=== PATIENT | female | born 1935 | race Caucasian/White ===

== ENCOUNTER 2019-02-09 14:55 | Emergency (ER) | payer MEDICARE, BC ==
[2019-02-09 15:25] LABS: ABSOLUTE EOSINOPHILS # (AUTO) 0.3 10^3/uL (0.0-0.6); ABSOLUTE LYMPHOCYTES (AUTO) 0.7 10^3/uL (0.5-4.7); ABSOLUTE MONOCYTES (AUTO) 0.4 10^3/uL (0.1-1.4); ABSOLUTE NEUT (AUTO) 3.4 10^3/uL (1.7-8.2); EOSINOPHILS % (AUTO) 5.4 % (0-6); HEMATOCRIT 33.5 % (36.0-47.0); HEMOGLOBIN 11.1 g/dL (12.0-15.5); LYMPHOCYTES % (AUTO) 14.8 % (13-45); MEAN CORPUSCULAR HEMOGLOBIN 31.2 pg (27.0-33.4); MEAN CORPUSCULAR HGB CONC 33.2 g/dL (32.0-36.0); MEAN CORPUSCULAR VOLUME 94 fl (80-97); MONOCYTES % (AUTO) 8.2 % (3-13); PLATELET COUNT 181 10^3/uL (150-450); RED BLOOD COUNT 3.56 10^6/uL (3.72-5.28); RED CELL DISTRIBUTION WIDTH 13.4 % (11.5-14.0); SEGMENTED NEUTROPHILS % (AUTO) 70.6 % (42-78); TOTAL CELLS COUNTED % (AUTO) 100 %; WHITE BLOOD COUNT 4.8 10^3/uL (4.0-10.5)
[2019-02-09 15:42] LABS: ALANINE AMINOTRANSFERASE 20 U/L (9-52); ALBUMIN 3.2 g/dL (3.5-5.0); ALKALINE PHOSPHATASE 43 U/L (38-126); ANION GAP 7 (5-19); ASPARTATE AMINO TRANSFERASE 20 U/L (14-36); BILIRUBIN,DIRECT 0.2 mg/dL (0.0-0.4); BILIRUBIN,TOTAL 0.4 mg/dL (0.2-1.3); BLOOD UREA NITROGEN 15 mg/dL (7-20); CALCIUM 8.4 mg/dL (8.4-10.2); CARBON DIOXIDE 24 mmol/L (22-30); CHLORIDE 110 mmol/L (98-107); GLUCOSE 111 mg/dL (75-110); POTASSIUM 3.9 mmol/L (3.6-5.0); SODIUM 141.1 mmol/L (137-145); TOTAL PROTEIN 5.7 g/dL (6.3-8.2)
--- NOTE | 2019-02-09 16:43 | RADIOLOGY REPORT (SQ) ---
EXAM DESCRIPTION: CHEST 2 VIEWS COMPLETED DATE/TIME: 02/09/2019 4:25 pm REASON FOR STUDY: hypoxia, elevated temp COMPARISON: None. EXAM PARAMETERS: NUMBER OF VIEWS: two views TECHNIQUE: Digital Frontal and Lateral radiographic views of the chest acquired. RADIATION DOSE: NA LIMITATIONS: none FINDINGS: LUNGS AND PLEURA: Patchy right lower lobe airspace disease is present, question pneumonia. Left lung grossly clear. No pleural effusion. No pneumothorax. MEDIASTINUM AND HILAR STRUCTURES: Prominent central pulmonary arteries, tortuous uncoiled thoracic ao rta HEART AND VASCULAR STRUCTURES: Marked cardiomegaly BONES: Old sternal and multiple thoracic and lumbar compression deformities. midthoracic compression s are treated with kyphoplasty HARDWARE: None in the chest. OTHER: No other significant finding. IMPRESSION: Patchy right lower lobe pneumonia TECHNICAL DOCUMENTATION: JOB ID: [id number] [employer]- All Rights Reserved Reading location - IP/workstation name: [email or web address]
[2019-02-09] MEDS ORDERED: LEVOFLOXACIN 750 MG/D5W RTU 750 MG/150 ML RTUPB IV ONE (17:16)
--- NOTE | 2019-02-09 18:41 | ER Document Report ---
ED General - General Chief Complaint: Heat Exposure Stated Complaint: VOMITING Time Seen by Provider: 02/09/19 15:27 TRAVEL OUTSIDE OF THE [place] IN LAST 30 DAYS: No - HPI Notes: Patient is an 83-year-old female with a history of atrial fibrillation, traveling here from [place], who presents to the emergency part for evaluation of weakness. [place] about an hour. She was underneath and on [place]. It was time to go inside, and she was too weak to be able to stand up without assistance. She had difficulty ambulating back to the room. She is brought here for further evaluation. The patient states that she felt hot all over and somewhat nauseated. She was given IV fluids as well a Zofran in route via EMS. She states she is feeling somewhat improved. She denies any focal pain. She is had no fevers. Minimal cough, states she is had some nasal drainage otherwise urinating normally, normal bowel movements, no other acute complaints or concerns. She states she been taking her medications as prescribed. - Related Data Allergies/Adverse Reactions: Sulfa (Sulfonamide Antibiotics) Allergy (Verified 02/09/19 15:33) Past Medical History - General Information source: Patient, Relative - Social History Smoking Status: Never Smoker Chew tobacco use (# tins/day): No Frequency of alcohol use: Rare Drug Abuse: None Family History: Reviewed & Not Pertinent Patient has suicidal ideation: No Patient has homicidal ideation: No - Past Medical History Cardiac Medical History: Reports: Hx Atrial Fibrillation, Hx Hypertension Renal/ Medical History: Denies: Hx Peritoneal Dialysis Past Surgical History: Reports: Hx Orthopedic Surgery - BACK Review of Systems - Review of Systems Constitutional: See HPI EENT: No symptoms reported Cardiovascular: No symptoms reported Respiratory: See HPI Gastrointestinal: See HPI Genitourinary: No symptoms reported Musculoskeletal: No symptoms reported Skin: No symptoms reported Neurological/Psychological: No symptoms reported Physical Exam - Vital signs Vitals: Temp 100.2 F 02/09/19 15:01 - Notes Notes: 83-year-old female, appears her stated age in no acute distress. Head is normocephalic and atraumatic. Pupils are equal, round, reactive to light. Oral mucosa is moist. Neck is supple without meningismus. Heart is irregularly irregular with holosystolic murmur. Lungs revealed diminished breath sounds at the right base. Abdomen is soft, nontender, normoactive bowel sounds. Posterior calves are nontender. Extremities without cyanosis or clubbing. Peripheral pulses are equal. Skin is warm and dry. Patient is awake and alert, she is disoriented to time, but patient's daughter states this is her baseline. Course - Re-evaluation Re-evalutation: 02/09/19 18:39 Patient presented to the emergency department for evaluation. She was placed on a night monitor and laboratory investigations were obtained. She was noted to be mildly hypoxic at first, with a SPO2 of 91% on room air. She has no history of COPD or asthma, no history of smoking. Laboratory investigations and chest x-ray were obtained. Chest x-ray did reveal a focal pneumonia in the right lower lobe. At this time patient's heart rate is normal. Her white count is normal. Her blood pressures are normal. At rest her oxygen is 98% on room air. We discussed options extensively here in the emergency department. She would prefer to be discharged, follow-up with her primary care physician back home in [place]. She was given a dose of IV Levaquin here. I explained to the patient that exertion could certainly worsen her mild hypoxia, she needs to rest. She voiced understanding to this. She certainly understand that if any changes in her symptoms or worsening occurs, she needs to return immediately to the emergency department for evaluation. - Vital Signs Vital signs: Temp Pulse Resp BP Pulse Ox 100.2 F 67 21 H 146/80 H 100 02/09/19 15:01 02/09/19 19:38 02/09/19 19:38 02/09/19 19:38 02/09/19 19:38 - Laboratory Result Diagrams: 02/09/19 15:10 02/09/19 15:10 Laboratory results interpreted by me: 02/09/19 02/09/19 15:10 15:10 RBC 3.56 L Hgb 11.1 L Hct 33.5 L Chloride 110 H Glucose 111 H Total Protein 5.7 L Albumin 3.2 L - Diagnostic Test Radiology reviewed: Reports reviewed Radiology results interpreted by me: 02/09/19 18:40 Chest X-Ray 02/09/19 15:49 IMPRESSION: Patchy right lower lobe pneumonia - EKG Interpretation by Me Additional EKG results interpreted by me: 02/09/19 18:40 Sinus mechanism with a rate of 83 bpm. Left bundle branch block. No old studies for comparison. Discharge - Discharge Clinical Impression: Generalized weakness Right lower lobe pneumonia Qualifiers: Aspiration pneumonia type: unspecified Condition: Stable Disposition: HOME, SELF-CARE Instructions: Pneumonia ([facility]) Additional Instructions: Rest, stay well-hydrated. Take all the antibiotic as prescribed, starting tomorrow. Follow-up with your primary care provider as soon as you return home. If you develop increasing shortness of breath, pain, fever, vomiting, or any other new or concerning symptoms, return immediately to the emergency department for reevaluation. Prescriptions: Levofloxacin [Levaquin 750 mg Tablet] 750 mg PO DAILY #4 tablet
[2019-02-09 19:40] VITALS: BP 146/80
--- NOTE | 2019-02-09 22:31 | EKG REPORT ---
SEVERITY:- ABNORMAL ECG - SINUS RHYTHM LEFT BUNDLE BRANCH BLOCK : Confirmed by: Sarah Diaz 09-Feb-2019 22:29:50
== END 2019-02-09 19:41 | disposition home or self-care (01) ==
LOC: ER 14:55
DX: J18.9 Pneumonia, unspecified organism (principal); R53.1 Weakness; R11.10 Vomiting, unspecified; I48.91 Unspecified atrial fibrillation; I10 Essential (primary) hypertension; Z88.2 Allergy status to sulfonamides
CPT/HCPCS: 93005; 99284; 96365; 96366; 36415; 87040; 85025; 87077; 80053; 87186; 71046; 93010; J1956